=== PATIENT | male | born 1940 | race Caucasian/White ===

== ENCOUNTER 2018-12-31 15:45 | Emergency (ER) | payer MEDICAID ==
[2018-12-31] MEDS: ACETAMINOPHEN 500 MG TAB PO (16:39)
== END 2018-12-31 21:25 | disposition home or self-care (01) ==
LOC: FTE 15:45
DX: J06.9 Acute upper respiratory infection, unspecified (principal); I10 Essential (primary) hypertension
CPT/HCPCS: 71045; 93005; 99284-25